=== PATIENT | female | born 1995 | race American Indian/Alaskan Native ===

== ENCOUNTER 2020-08-03 16:35 | Emergency (ER) | payer MEDICAID ==
[2020-08-03 16:44] VITALS: BP 123/82
[2020-08-03 18:58] LABS: Basophils % (Auto) 0.2 % (0.0-1.8); Eosinophils % (Auto) 0.2 % (0.0-4.3); Hematocrit 42.4 % (30.3-42.9); Lymphocytes # (Auto) 2.7 K/mm3 (1.2-5.4); Lymphocytes % (Auto) 14.2 % (13.4-35.0); Mean Corpuscular HGB Conc 33 % (30-34); Mean Corpuscular Volume 83 fl (79-97); Monocytes # (Auto) 1.3 K/mm3 (0.0-0.8); Monocytes % (Auto) 6.9 % (0.0-7.3); Platelet Count 280 K/mm3 (140-440); Red Blood Count 5.12 M/mm3 (3.65-5.03); Red Cell Distribution Width 14.1 % (13.2-15.2)
[2020-08-03 19:19] LABS: Alanine Aminotransferase 39 units/L (7-56); Blood Urea Nitrogen 11 mg/dL (7-17); Calcium 9.3 mg/dL (8.4-10.2); Hemolysis Index 8
[2020-08-03 19:29] LABS: BUN/Creatinine Ratio 16
[2020-08-03] MEDS ORDERED: ONDANSETRON 4 MG/2 ML INJ IV ONE (20:10)
[2020-08-03] MEDS ORDERED: SODIUM CHLORIDE 0.9% 1000 ML 1,000 ML IV ONE (20:10)
--- NOTE | 2020-08-03 20:24 | Emergency Department Report ---
ED Abdominal Pain HPI - General Chief Complaint: Abdominal Pain Stated Complaint: BACK/STOMACH/CHEST TIGHT Time Seen by Provider: 08/03/20 20:21 Source: patient Mode of arrival: Ambulatory Limitations: No Limitations - History of Present Illness Initial Comments: Patient is a 24-year-old female denies medical history who presents for right upper quadrant pain at 7/10 x3 days. There is positive nausea vomiting. Last menstrual cycle was 2 weeks ago., There is been no fever, chills. Symptoms are exacerbated by p.o. intake. Symptoms are relieved by nothing tried. There is no dizziness, lightheadedness, no hemoptysis. Patient denies history of ga llstones. Patient does endorse right upper quadrant tenderness. MD Complaint: abdominal pain Severity scale (0 -10): 10 - Related Data Previous Rx's Medication Instructions Recorded Last Taken Type Omeprazole 20 mg PO DAILY #30 capsule. 08/03/20 Unknown Rx traMADoL [Ultram] 50 mg PO Q6HR PRN #12 tablet 08/03/20 Unknown Rx Allergies Allergy/AdvReac Type Severity Reaction Status Date / Time No Known Allergies Allergy Unverified 08/03/20 16:41 ED Review of Systems ROS: Stated complaint: BACK/STOMACH/CHEST TIGHT Other details as noted in HPI Constitutional: malaise Eyes: denies: eye pain, eye discharge, vision change ENT: denies: ear pain, throat pain Respiratory: denies: cough, shortness of breath, wheezing Cardiovascular: denies: chest pain, palpitations Endocrine: no symptoms reported Gastrointestinal: abdominal pain, nausea, vomiting. denies: diarrhea, constipation, hematemesis, melena, hematochezia Genitourinary: denies: urgency, dysuria, frequency, hematuria, discharge Musculoskeletal: denies: back pain, joint swelling, arthralgia Skin: denies: rash, lesions Neurological: denies: headache, weakness, paresthesias Psychiatric: denies: anxiety, depression Hematological/Lymphatic: denies: easy bleeding, easy bruising ED Past Medical Hx - Past Medical History Previous Medical History?: No - Surgical History Past Surgical History?: No - Medications Home Medications: Home Medications Medication Instructions Recorded Confirmed Last Taken Type Omeprazole 20 mg PO DAILY #30 capsule. 08/03/20 Unknown Rx traMADoL [Ultram] 50 mg PO Q6HR PRN #12 tablet 08/03/20 Unknown Rx ED Physical Exam - General Limitations: No Limitations General appearance: alert, in no apparent distress - Head Head exam: Present: atraumatic, normocephalic - Eye Eye exam: Present: normal appearance - ENT ENT exam: Present: mucous membranes moist - Neck Neck exam: Present: normal inspection, full ROM. Absent: tenderness - Respiratory Respiratory exam: Present: normal lung sounds bilaterally. Absent: respiratory distress, wheezes, stridor, chest wall tenderness - Cardiovascular Cardiovascular Exam: Present: regular rate, normal rhythm, normal heart sounds. Absent: systolic murmur, diastolic murmur, rubs, gallop - GI/Abdominal GI/Abdominal exam: Present: soft, tenderness (RUQ ), rebound, normal bowel sounds. Absent: guarding, rigid, bruit, hernia - Expanded GI/Abdominal Exam Expanded GI/Abdominal exam: Present: Nunez's sign. Absent: psoas sign, obturator sign, heel tap sign, Rovsing's sign, tenderness at Mcburney's Point, ascites - Rectal Rectal exam: Present: deferred - Extremities Exam Extremities exam: Present: normal inspection, full ROM. Absent: tenderness - Back Exam Back exam: Present: normal inspection, full ROM. Absent: tenderness, CVA tenderness (R), CVA tenderness (L) - Neurological Exam Neurological exam: Present: alert, oriented X3, CN II-XII intact, normal gait - Psychiatric Psychiatric exam: Present: normal affect, normal mood - Skin Skin exam: Present: warm, dry, intact, normal color. Absent: rash ED Course Vital Signs 08/03/20 16:41 Temperature 98.8 F Pulse Rate 94 H Respiratory 18 Rate Blood Pressure 123/82 [Right] O2 Sat by Pulse 99 Oximetry ED Medical Decision Making - Lab Data Result diagrams: 08/03/20 18:42 08/03/20 18:42 - Radiology Data Radiology results: report reviewed, image reviewed Findings Reporting MD: Jose Richmond Dictation Time: August 03, 2020 19:59 Care Management Coordinator: Not available Ear Muff Assembler Date: CT abdomen pelvis wo con INDICATION: RUQ r/o cholecystitis. COMPARISON: None TECHNIQUE: Abdominal and pelvic CT exam performed. All CT scans at this location are performed using CT dose reduction for ALARA by means of automated exposure control. FINDINGS: CT ABDOMEN and PELVIS: Lung Bases: No significant abnormality. Liver: No significant abnormality. Biliary: Gallstones without gallbladder wall thick ening or pericholecystic fluid. Spleen: No significant abnormality. Pancreas: No significant abnormality. Adrenals: No significant abnormality. Kidneys: Punctate left interpolar nonobstructing stone. Lymphatics: No lymphadenopathy. Vasculature: No significant abnormality. Bowel: No significant abnormality. Pelvis: Small quantity of fluid in the rectouterine pouch likely physiologic. IUD in place. Osseous Structures: No aggressive osseous lesion. Additional Findings: None IMPRESSION: 1. No acute abnormality of the abdomen or pelvis. 2. Cholelithiasis. 3. Punctate left interpolar nonobstructing stone. Signer Name: Jose Richmond MD Signed: 08/03/2020 7:59 PM Workstation Name: [id number] - Medical Decision Making CT abdomen and pelvis cholelithiasis no grab gallbladder wall thickening there is been no fever, chills, patient is tolerating p.o. intake at this time without nausea vomiting. Pain is improved. Plan DC to home with prescriptions follow- up with primary care doctor in 2-3 days, follow-up with [facility] in 2-3 days , patient verbalized agreement and understanding of discharge plan. Patient DC'd home in stable condition stable, at this time. Critical care attestation.: If time is entered above; I have spent that time in minutes in the direct care of this critically ill patient, excluding procedure time. ED Disposition Clinical Impression: Gall stone Qualifiers: Cholecystitis presence: without cholecystitis Biliary obstruction: without biliary obstruction Qualified Code(s): K80.20 - Calculus of gallbladder without cholecystitis without obstruction Disposition: DC-01 TO HOME OR SELFCARE Is pt being admited?: No Does the pt Need Aspirin: No Condition: Stable Instructions: Cholelithiasis, Rxss-or-Itgk, Abdominal Pain (ED) Prescriptions: Omeprazole 20 mg PO DAILY #30 capsule. traMADoL [Ultram] 50 mg PO Q6HR PRN #12 tablet PRN Reason: Pain Referrals: CESAR BURDICK MD [Referring] - 3-5 Days [facility] [Provider Group] - 3-5 Days Forms: Work/School Release Form(ED) Time of Disposition: 21:22
--- NOTE | 2020-08-03 21:04 | Cat Scan Report ---
CT abdomen pelvis wo con INDICATION: RUQ r/o cholecystitis. COMPARISON: None TECHNIQUE: Abdominal and pelvic CT exam performed. All CT scans at this location are performed using CT dose reduction for ALARA by means of automated exposure control. FINDINGS: CT ABDOMEN and PELVIS: Lung Bases: No significant abnormality. Liver: No significant abnormality. Biliary: Gallstones without gallbladder wall thickening or pericholecystic fluid. Spleen: No significant abnormality. Pancreas: No significant abnormality. Adrenals: No significant abnormality. Kidneys: Punctate left interpolar nonobstructing stone. Lymphatics: No lymphadenopathy. Vasculature: No significant abnormality. Bowel: No significant abnormality. Pelvis: Small quantity of fluid in the rectouterine pouch likely physiologic. IUD in place. Osseous Structures: No aggressive osseous lesion. Additional Findings: None IMPRESSION: 1. No acute abnormality of the abdomen or pelvis. 2. Cholelithiasis. 3. Punctate left interpolar nonobstructing stone. Signer Name: Jose Richmond MD Signed: 08/03/2020 8:59 PM Workstation Name: [id number]
[2020-08-03] MEDS ORDERED: traMADol 50 MG TAB PO ONE (21:12)
[2020-08-03] MEDS ORDERED: FAMOTIDINE 20 MG TAB PO ONE (21:12)
[2020-08-03] MEDS ORDERED: KETOROLAC 30 MG/1 ML INJ IV ONE (21:29)
== END 2020-08-03 21:50 | disposition home or self-care (01) ==
LOC: ED 16:35
DX: K80.20 Calculus of gallbladder without cholecystitis without obstruction (principal); R11.2 Nausea with vomiting, unspecified; Z79.899 Other long term (current) drug therapy
CPT/HCPCS: 36415; 74176; 80053; 83690; 84703; 85025; 96361; 96374; 96375; 99284; J1885; J2405; J7030